=== PATIENT | female | born 2000 | race Caucasian/White ===

== ENCOUNTER 2022-03-10 21:28 | Outpatient (REF) | payer SELFPAY | END 2022-03-10 21:29 | disposition home or self-care (01) | LOC: LBN 21:28 | PROVIDERS: Visit Provider Nurse Practitioner Family | DX: R30.0 Dysuria (principal) | CPT/HCPCS: 87086 ==

== ENCOUNTER 2024-10-28 13:08 | Emergency (ER) | payer BC, SELFPAY ==
[2024-10-28 13:40] VITALS: BP 130/75; PULSE 92; RESP 18; TEMP 36.7; O2SAT 98
--- NOTE | 2024-10-28 14:20 | ED.GENADUL_ITS ---
Discharge Plan Disposition Patient Disposition: Home Condition: Stable Discharge Details Clinical Impression: Ovarian cyst, right Primary Care Provider: Cheryl,Local ED Provider: Britta Najera Home Meds and New Rx's Prescriptions: No Action drospirenone-ethinyl estradiol [Cassie (28)] 3-0.02 mg tablet 1 tab PO DAILY Rx Instructions: takes at night Discharge Instructions Instructions: Ovarian Cyst ED Additional Instructions: At this time the CT of your abdomen shows a ovarian cyst on the right. No evidence for appendicitis or any other abnormality. Your labs are largely unremarkable no evidence for urinary tract infection. Ovarian cysts can be common in some women. They usually will go away on their own however if you continue to have worsening pain fever chills please follow-up with your [employer]/primary care provider or return to the emergency department. Please take Tylenol or Ibuprofen with food every 4-6 hours as needed for pain and swelling. You may apply heating pads to your abdomen as well if this helps. Follow up with primary care provider in 3-5 days. Return to ED sooner if any worsening or concerns. Thank you for allowing us to care for you today. Referrals: [facility] [place] Group] Primary Care Provider [Outside] HPI General Mode of arrival: ambulatory . Date/Time Provider Initiated Documentation: 10/28/24 13:45 . Limitations to Documentation: no limitations . Information obtained by: patient, RN notes reviewed and old records reviewed . HPI Narrative: 24-year-old female presents to the ER with chief complaint of right lower quadrant abdominal and suprapubic tenderness which began approximately an hour prior to arrival. She reports that she just started a new control tablet 2 days ago. Denies any vaginal discharge or bleeding. Last normal menstrual period was October 16. Denies any possibility of at this time. She reports pain with urination this morning. Endorses nausea no vomiting no diarrhea. Had a normal bowel movement this morning. No history of abdominal surgeries. She describes it as sharp stabbing. She also describes pressure in her rectum. Related Data Home Medications ?Medication ?Instructions ?Recorded ?Confirmed drospirenone 3 mg-ethinyl 1 tab PO DAILY 10/28/24 10/28/24 estradiol 0.02 mg tablet (Cassie (28)) Allergies Allergy/AdvReac Type Severity Reaction Status Date / Time No Known Allergies Allergy Unverified 10/28/24 13:48 General Stated Complaint: Abd Prob RAJ: 3 Review of Systems All systems reviewed & are unremarkable except as noted in HPI and below Gastrointestinal Gastrointestinal: Reports abdominal pain, Reports cramping and Reports nausea Genitourinary Genitourinary: Reports dysuria, Reports pelvic pain, Denies vaginal discharge, Denies vaginal odor and Denies vaginal pruritus Exam Narrative Exam Narrative: Constitutional: Alert and oriented x3. Appears stated age. Normal body habitus. Head: Normocephalic, no trauma. Chest: RRR, Normal S1, S2, distal pulses intact. Resp: Lungs clear to auscultation bilaterally, no wheezes, rales, or rhonchi. Abdomen: Soft, non-distended, Normoactive bowel sounds all 4 quads. Musculoskeletal: Normal gait, Moves all 4 extremities without difficulty. Skin: No suspicious rashes or lesions. Capillary refill less than 2 sec. Neurologic: Cranial nerves II-XII intact. Alert and oriented x 3. Motor: No deficits noted. Sensory: Intact bilaterally all 4 extremities. Hematologic/Lymphatic: No ecchymosis, no lymphadenopathy. Course Vital Signs Vital signs: Vital Signs Temperature 36.7 C 10/28/24 13:40 Pulse 92 H 10/28/24 13:40 Respiratory Rate 18 10/28/24 13:40 Blood Pressure 130/75 10/28/24 13:40 Pulse Oximetry 98 10/28/24 13:40 Temperature 36.7 C 10/28/24 13:40 Temperature Source Oral 10/28/24 13:40 Pulse 92 H 10/28/24 13:40 Respiratory Rate 18 10/28/24 13:40 Blood Pressure 130/75 10/28/24 13:40 Blood Pressure Position Sitting 10/28/24 13:40 Pulse Oximetry 98 10/28/24 13:40 Oxygen Delivery Method Room Air 10/28/24 13:40 Oxygen Flow Rate 0 10/28/24 13:40 Pain Level 5 10/28/24 13:40 Medical Decision Making 24-year-old female presents to the ER with chief complaint of right lower quadrant abdominal and suprapubic tenderness which began approximately an hour prior to arrival. She reports that she just started a new control tablet 2 days ago. Denies any vaginal discharge or bleeding. Last normal menstrual period was October 16. Denies any possibility of at this time. She reports pain with urination this morning. Endorses nausea no vomiting no diarrhea. Had a normal bowel movement this morning. No history of abdominal surgeries. She describes it as sharp stabbing. She also describes pressure in her rectum. Workup ordered including CBC CMP lipase urinalysis urine test CT abdomen pelvis. I did offer medicine for pain and nausea which patient declined at this time. Differential diagnose includes but not limited to gastroenteritis, UTI, ovarian cyst, appendicitis, ectopic . Lab work is largely unremarkable, no leukocytosis, electrolytes within normal limits no evidence for urinary tract infection. CT of abdomen pelvis shows a right ovarian cyst which I do believe is causing her abdominal pain. No evidence for appendicitis. Patient reevaluation she is feeling much better. Discussed the results of her CT she verbalized understanding. Discussed follow-up strict return instructions . This text was generated using Sponduuation system, please disregard any oddities of phrase or misspellings. Imaging Data Radiologic Study: Imaging: CT Scan Radiologist's impression: FINDINGS: ABDOMEN: Lung Bases: No acute abnormality. Liver: Normal density. No measurable mass. Portal, Superior Mesenteric, and Splenic Veins: Unremarkable. Gallbladder and Biliary Tract: No radiodense calculus or dilation. Pancreas: Normal density, no abnormal calcifications or inflammatory process. Spleen: Normal. Adrenals: No masses seen. Kidneys: Normal size, contour and axis. No radiodense stones or obstructive uropathy. No masses seen. Abdominal Aorta: Abdominal portion non-dilated. Bowel: No obstruction or bowel wall thickening. Appendix is unremarkable. Peritoneal Cavity: There is a trace amount of free fluid in the pelvis and adjacent to the right ovary which is likely physiologic. No free air. Lymph Nodes: Within normal limits. Bones: Within normal limits for the patient's age. Soft Tissues: Unremarkable. PELVIS: Bladder: Symmetric distention, no gross wall thickening. Reproductive Organs: There is a 2.4 x 1.6 cm peripherally enhancing cyst in the right ovary most consistent with a corpus luteal cyst. The reproductive organs are otherwise unremarkable. Lymph Nodes: Within normal limits. Bones: Within normal limits for the patient's age. IMPRESSION: 1. Normal appendix. 2. No evidence of biliary ductal dilatation or hydronephrosis. 3. 2.4 x 1.6 cm peripherally enhancing cyst in the right ovary with a small amount of free pelvic fluid adjacent to the right ovary in the cul-de-sac. This is all likely physiologic. Lab Data Lab results reviewed: Yes I reviewed the patient's lab results. Labs: Laboratory Tests Range/Units 10/28/24 10/28/24 13:52 14:20 WBC (4.4-10.8) 10^3/uL 6.57 RBC (3.93-5.22) 10^6/uL 4.48 Hgb (11.2-15.7) g/dL 14.2 Hct (36.0-46.0) % 41.1 MCV (80-95) fL 92 MCH (27.0-33.0) pg 31.7 MCHC (32.0-36.0) % 34.5 RDW (11.7-14.6) % 12.4 Plt Count (130-400) 10^3/uL 242 MPV (8.0-11.0) fL 10.1 Immature Gran % % 0.2 Neutrophils % % 67.0 Lymphocytes % % 22.7 Monocytes % % 7.6 Eosinophils % % 2.0 Basophils % % 0.5 Nucleated RBC % (0.0-0.3) % 0.0 Absolute Neutrophils (1.2-6.7) 10^3/uL 4.41 Absolute Lymphocytes (1.2-3.4) 10^3/uL 1.49 Absolute Monocytes (0.1-0.8) 10^3/uL 0.50 Absolute Eosinophils (0.0-0.7) 10^3/uL 0.13 Absolute Basophils (0.0-0.2) 10^3/uL 0.03 Sodium (136-145) mmol/L 139 Potassium (3.5-5.1) mmol/L 3.9 Chloride (98-107) mmol/L 106 Carbon Dioxide (21.0-32.0) mmol/L 25.1 Anion Gap (3-11) mmol/L 7.9 BUN (7-18) mg/dL 11 Creatinine (0.55-1.02) mg/dL 0.8 Est GFR (CKD-EPI 2020) (mL/min/1.73m2) 104.80 Glucose (74-106) mg/dL 104 Calcium (8.5-10.1) mg/dL 9.1 Magnesium (1.8-2.4) mg/dL 1.8 Total Bilirubin (0.2-1.0) mg/dL 0.4 AST (15-37) U/L 16 ALT (14-59) U/L 19 Alkaline Phosphatase (46-116) U/L 51 Total Protein (6.4-8.2) g/dL 7.4 Albumin (3.4-5.0) g/dL 4.0 Lipase (<78) U/L 37 Urine Color (Yellow) Yellow Urine Clarity (Clear) Clear Urine pH (5-8) 7.0 Ur Specific [place] (1.005-1.025) 1.015 Urine Protein (Neg-Trace) mg/dL Negative Urine Ketones (Negative) mg/dL Negative Urine Blood (Negative) Negative Urine Nitrite (Negative) Negative Urine Bilirubin (Negative) Negative Urine Urobilinogen (Up to 0.2) mg/dL 0.2 Ur Leukocyte Esterase (Negative) Negative Urine Glucose (Negative) mg/dL Negative Quality:SDOH Health Related Social Needs: No Data to Display PFSH All Active Problems (Updated 10/28/24 @ 15:14 by Britta Najera NP) Ovarian cyst, right (Acute) Social History Smoking/Tobacco Use Status: Current-Occasional Tobacco Type: e-cigarettes Smoking risk assessment performed?: Yes Alcohol Intake: current Alcohol Intake frequency: a few times a week Alcohol type: beer and wine Drug use: Occasionally Substance use type: marijuana PAWSS Have you Been Recently Intoxicated or Drunk Within the Last 30 days?: No Have you Ever Experienced Previous Episodes of Alcohol Withdrawal?: No Have you ever Experienced Withdrawal Seizures?: No Have you ever Experienced Delirium Tremens(DT)s?: No Have you ever undergone Alcohol Rehabilitation Treatment (i.e, inpt ot outpatient treatment programs)?: No Have you ever Experienced Blackouts?: No Have you ever Combined Alcohol with other Downers within the last 90 days?: No Have you ever Combined Alcohol with any other Substance of Abuse during the last 90 days?: No Positive Blood Alcohol level on Presentation? [PCS.BAL]: No Evidence of Increased Autonomic Activity (i.e. HR>120, tremor, sweating, agitation, nausea)?: No Result: 0
[2024-10-28 14:34] LABS: Abs Immature Grans 0.01 10^3/uL (0.0-0.06); Absolute Basophil Count 0.03 10^3/uL (0.0-0.2); Absolute Eosinophil Count 0.13 10^3/uL (0.0-0.7); Absolute Lymphocyte Count 1.49 10^3/uL (1.2-3.4); Absolute Neutrophil Count 4.41 10^3/uL (1.2-6.7); Basophils % 0.5 %; HCT 41.1 % (36.0-46.0); HGB 14.2 g/dL (11.2-15.7); Immature Grans % 0.2 %; Lymphocytes % 22.7 %; MCH 31.7 pg (27.0-33.0); MCHC 34.5 % (32.0-36.0); MCV 92 fL (80-95); MPV 10.1 fL (8.0-11.0); Monocytes % 7.6 %; Platelet Count 242 10^3/uL (130-400); RBC 4.48 10^6/uL (3.93-5.22); RDW 12.4 % (11.7-14.6); RDW-SD 41.7 fL; WBC 6.57 10^3/uL (4.4-10.8)
[2024-10-28] MEDS: Normal Saline - Diluent 50 ML VIAL IJ (14:36)
[2024-10-28] MEDS: Omnipaque 350 MG/ML 100 ML BTL 75 ML IJ (14:40)
--- NOTE | 2024-10-28 14:41 | DI.CT_ITS ---
Exam(s) CT ABDOMEN PELVIS W EXAM: CT ABDOMEN PELVIS W CLINICAL HISTORY: RLQ abd Pain TECHNIQUE: Imaging Protocol: Axial computed tomography images with coronal and sagittal reformatted images were created and reviewed. CONTRAST MATERIAL: Intravenous: Omnipaque 350 Contrast volume:75 mL Oral: No COMPARISON: No exams were available for comparison FINDINGS: ABDOMEN: Lung Bases: No acute abnormality. Liver: Normal density. No measurable mass. Portal, Superior Mesenteric, and Splenic Veins: Unremarkable. Gallbladder and Biliary Tract: No radiodense calculus or dilation. Pancreas: Normal density, no abnormal calcifications or inflammatory process. Spleen: Normal. Adrenals: No masses seen. Kidneys: Normal size, contour and axis. No radiodense stones or obstructive uropathy. No masses seen. Abdominal Aorta: Abdominal portion non-dilated. Bowel: No obstruction or bowel wall thickening. Appendix is unremarkable. Peritoneal Cavity: There is a trace amount of free fluid in the pelvis and adjacent to the right ovar y which is likely physiologic. No free air. Lymph Nodes: Within normal limits. Bones: Within normal limits for the patient's age. Soft Tissues: Unremarkable. PELVIS: Bladder: Symmetric distention, no gross wall thickening. Reproductive Organs: There is a 2.4 x 1.6 cm peripherally enhancing cyst in the right ovary most cons istent with a corpus luteal cyst. The reproductive organs are otherwise unremarkable. Lymph Nodes: Within normal limits. Bones: Within normal limits for the patient's age. IMPRESSION: 1. Normal appendix. 2. No evidence of biliary ductal dilatation or hydronephrosis. 3. 2.4 x 1.6 cm peripherally enhancing cyst in the right ovary with a small amount of free pelvic flu id adjacent to the right ovary in the cul-de-sac. This is all likely physiologic. RADIATION DOSE DELIVERED: 285.95mGy.cm Total DLP DATA REPOSITORY: All CT scans at this facility are submitted to the National Radiology Data Registry (NRDR) Dose Index Registry (DIR) with the [employer] ([employer]). RADIATION OPTIMIZATION: All CT scans at this facility use at least one of these dose optimization te chniques: automated exposure control; mA and/or kV adjustment per patient size (includes targeted exa ms where dose is matched to clinical indication); or iterative reconstruction.
[2024-10-28 14:42] LABS: Bilirubin Negative (Negative); Blood Negative (Negative); Clarity Clear (Clear); Glucose Negative (Negative); Ketones Negative (Negative); Leukocyte Esterase Negative (Negative); Nitrite Negative (Negative); Specific Gravity 1.015 (1.005-1.025); Urobilinogen 0.2 mg/dL (Up to 0.2)
[2024-10-28 14:48] LABS: ALT 19 U/L (14-59); AST 16 U/L (15-37); Alkaline Phosphatase 51 U/L (46-116); Anion Gap 7.9 mmol/L (3-11); BUN 11 mg/dL (7-18); Bilirubin, Total 0.4 mg/dL (0.2-1.0); CO2 25.1 mmol/L (21.0-32.0); CREATININE 0.8 mg/dL (0.55-1.02); Calcium 9.1 mg/dL (8.5-10.1); Chloride 106 mmol/L (98-107); Glucose 104 mg/dL (74-106); Lipase 37 U/L (<78); Magnesium 1.8 mg/dL (1.8-2.4); Potassium 3.9 mmol/L (3.5-5.1); Sodium 139 mmol/L (136-145); Total Protein 7.4 g/dL (6.4-8.2)
[2024-10-28 15:23] VITALS: BP 126/65; PULSE 71; TEMP 36.7; O2SAT 98
== END 2024-10-28 15:29 | disposition home or self-care (01) ==
LOC: ER 15:41
PROVIDERS: Emergency Provider Registered Nurse Emergency
DX: N83.201 Unspecified ovarian cyst, right side (principal); R10.31 Right lower quadrant pain
CPT/HCPCS: 99283; 99285; 81025; 36415; 80053; 83690; 74177; 81003; 83735; 85025; J3490